=== PATIENT | male | born 1945 | race Caucasian/White ===

== ENCOUNTER 2016-08-25 00:26 | Day surgery (SDC) | payer MEDICARE ==
[~2016-08-25] VITALS: Ht 185.4 cm; Wt 86.3 kg
[2016-08-25] VITALS (14 sets, daily range): BP systolic 111–142; BP diastolic 55–77; PULSE 42–63; RESP 12–19; O2SAT 95–99
[~2016-08-25 00:26] MED LIST: ASPI325T32 PO; NITR0.4T6 SL; PRAV20TA2 PO; TOP100 PO; WARF5TAB7 PO
[2016-08-25 09:23] LABS: BASOPHILS % (AUTO) 0.7 % (0-3); EOSINOPHILS % (AUTO) 3.3 % (0-5); MONOCYTES % (AUTO) 6.4 % (4-12); Mean Corpuscular Hemoglobin 28.9 pg (27.0-35.0); NEUTROPHILS % (AUTO) 61.6 % (40-74); Platelet Count 186 bil/L (150-400)
[2016-08-25] MEDS ORDERED: Nitroglycerin 50,000 mcg/250 mL D5W Premix IV ONE (09:23)
[2016-08-25] MEDS ORDERED: Heparin 1,000 Units/500 mL NS Premix IV ONE (09:23)
[2016-08-25] MEDS ORDERED: Heparin 5,000 Units/500 mL NS Premix IV ONE (09:24)
[2016-08-25] MEDS ORDERED: Heparin 1,000 Unit/mL 10 mL Inj ONE ×2 (09:24→11:43)
[2016-08-25 09:31] LABS: INR 0.95 ratio
[2016-08-25] MEDS ORDERED: 0.9% Sodium Chloride 1,000 ML ONE (09:34)
--- NOTE | 2016-08-25 09:56 | NUR ---
BRETT Admit Admitted to [facility] about 0830. VSS. Denies pain. Tele SB. IVs started and labs sent. Procedure and recovery reviewed and verbalizes understanding. Scanner for meds not working. See EMR for further info and assessment. Awaiting photo lab specialist. Addendum: 08/25/16 at 1015 by ALICE MILLER RN Pt's stated that after his last procedure he was very sleepy with some intermittent, slight confusion for 3 days. After they discussed it they refused the total dose of Lorazepam and requested half dose only. Lorazepam 0.25mg IVP given and reported to OLIVIA Jackson.
[2016-08-25] MEDS ORDERED: fentaNYL-PF 50 mCg/mL 2 mL Inj ONE (10:25)
[2016-08-25] MEDS ORDERED: Atropine 1 mg/10 mL (Code) Syringe ONE (10:57)
--- NOTE | 2016-08-25 13:09 | DI95 ---
[address] [address] INTERVENTIONAL CARDIAC CATHETERIZATION PATIENT: ABDI KASPER : 1945 MR#: [id number] ADMIT: 08/25/2016 JOB ID: [id number] DATE OF PROCEDURE: PROCEDURE: 1. Percutaneous intervention of the right coronary artery. 2. Percutaneous intervention on the left anterior descending artery. INDICATION: 1. Chest pain. 2. Abnormal stress test. HISTORICAL DETAILS: The patient was brought back following an angiogram earlier which was done radially. The RCA is tortuous and necessitated a stiffer sheath and this procedure was then hence done via right femoral approach. PROCEDURAL DETAILS: The coders and the reader is referred to the procedure log for complete details. Briefly, 8-Comoran sheath was inserted in the right femoral artery. An eight-Comoran AL1 guide was used for the right coronary and a Voda 7-Comoran for the left. INTERVENTIONAL REPORT: We took a Run-through wire and placed it in the distal RCA. The Sydney Seed Fundm wire was used as a shanna wire. Following that, we did balloon angioplasty in the proximal mid as well as the distal RCA. The distal RCA was stented with 3.0 x 23 mm Xience drug-coated stent. The proximal and the mid RCA was stented with a 3.0 x 18 mm stent, followed by a 3.0 x 28 mm stent, which was delivered more proximally. Final angiographic results in the RCA were excellent. We then took a Voda guide and intervened on his obtuse marginal branch of the circumflex artery. This circumflex has a branch that arises very proximally. The branch takes off at a 90 degree angle and then makes another 90 degree angle. We were able to get across the proximal of the two bends; however, none of the wires would make the distal bend of as well as a ChoICE PT floppy wire were used. It is about a 1.5 mm to 2 mm vessel. At this point, we decided not to intervene upon it. The second obtuse marginal branch itself has about an 80% lesion in its proximal part. This was stented with a 2.25 x 15 mm Xience drug-coated stent delivered at 16 atmospheres. Final angiographic results were excellent and there was no compromise of this severely diseased side branch. SUMMARY: Successful two vessel intervention. The patient is advised to go back on his warfarin. He will also start Plavix. I have advised to him not to take aspirin along with his Plavix and warfarin. His aspirin may be reinstituted after six months or a year when the Plavix is discontinued.
--- NOTE | 2016-08-25 13:45 | NUR ---
Received Received from quality lab technician about 1225. VSS. Denies pain. at bedside. Right groin without hematoma, track ooze present. Peripheral pulses palp. Taking po well. Bio-occlusive dressing changed to gauze covered by tegaderm at 1315 and then placed a kerlix roll over dressing and 5 lb sandbag over that. Peripheral pulses palp. Continue to monitor.
[2016-08-25] MEDS ORDERED: Lidocaine 1%-Epi 1:100,000 20 mL Inj ONE (14:43)
--- NOTE | 2016-08-25 15:15 | NUR ---
Transfer from [facility]/Ambulation Pt. was transferred from [facility] to room 2030 PCC, RN at bedside hand off. Pt. has no c/o of pain, CP, or SOB. Pt. is to remain bed rest until 1630 per protocol. I instructed Pt. to use call light to let me know when he is ready to get up and ambulate for the first time. Pt. has a low HR of 50, BP 135/79, RA SpO2 99%, RR 18 and is sinus zane per tele. Right groin is non tender, soft to palpation with slight oozing of blood at ~1715. Dressing changed and a 2x2 gauze applied with tegaderm. Pt. ambulated with at about 1730 and forgot to use call light. Pt. is in bed at this time resting comfortably and reminded again to use call light before getting up.
--- NOTE | 2016-08-25 15:23 | NUR ---
BRETT ASSUMED CARE OF PT AT 1500. LIEUTENANT GENERAL HERE TO INJECT RIGHT GROIN WITH LIDO WITH EPI. SHE PLACED ULTRAFOAM AND OPSITE DRSG. RIGHT GROIN REMAINS SOFT, NO HEMATOMA NOTED; RIGHT DP 2+. PT, AND HIS NURSING CARE, WERE TRANSFERRED TO ROOM 2030 AT 1515. RN TO RN BEDSIDE HANDOFF WAS DONE WITH MARY BAKER. REPORT HAD BEEN CALLED EARLIER BY ALICE Montanez RN. TELE WAS PLACED ON PT.
[2016-08-25] MEDS ORDERED: 0.9% Sodium Chloride 250 ML BOLUS IV PRN (19:35)
[2016-08-25] MEDS ORDERED: Atropine 1 mg/10 mL (Code) Syringe IVPUSH PRN (19:35)
[2016-08-25] MEDS ORDERED: Ondansetron 2 mg/mL 2 mL Inj IVPUSH PRN (19:35)
[2016-08-25] MEDS ORDERED: Sodium Chloride LOK Flush 10 mL Syringe IVFLUSH PRN (19:35)
[2016-08-25] MEDS ORDERED: 0.9% Sodium Chloride 400 ML (4 HRS) IV ONE (19:35)
[2016-08-25] MEDS ORDERED: Clopidogrel 300 mg Tablet (LOADING DOSE) PO ONE (19:35)
--- NOTE | 2016-08-25 22:50 | PCM.CONPHA ---
Subjective Date of Service: Aug 25, 2016 Reason for Pharmacy Consult: Anticoagulation Management Objective Vital Signs Date Time Temp Pulse Resp B/P Pulse Ox O2 Delivery O2 Flow Rate FiO2 08/25/16 20:07 36.6 54 19 140/77 99 Room Air 08/25/16 15:25 52 08/25/16 14:30 49 12 119/55 97 Room Air 08/25/16 14:00 44 12 116/63 96 Room Air 08/25/16 13:30 46 12 119/60 97 Room Air 08/25/16 13:30 46 12 119/60 08/25/16 13:15 44 12 111/63 08/25/16 13:15 44 12 111/63 97 Room Air 08/25/16 13:00 43 13 118/67 08/25/16 13:00 43 13 118/67 97 Room Air 08/25/16 12:45 43 13 125/64 08/25/16 12:45 43 13 125/64 98 Room Air 08/25/16 12:35 43 12 122/63 08/25/16 12:35 43 12 122/63 98 Room Air 08/25/16 12:30 44 12 117/66 98 Room Air 08/25/16 12:30 44 12 117/66 08/25/16 12:25 42 12 132/63 08/25/16 12:25 42 12 132/63 98 Room Air 08/25/16 09:58 47 14 08/25/16 09:13 36.6 46 12 142/72 98 Room Air Weight (Kilograms): 86.300 Height (Feet): 6 Height (Inches): 1.00 Test 08/25/16 08:50 White Blood Count 4.3th/mm3 (3.8-10.1) Red Blood Count 5.15mil/mm3 (4.40-5.80) Hemoglobin 14.9g/dL (13.8-17.2) Hematocrit 44.3% (41.0-50.0) Mean Corpuscular Volume 86.0fL (81-100) Mean Corpuscular Hemoglobin 28.9pg (27.0-35.0) Mean Corpuscular Hemoglobin Concent 33.6% (32.0-37.0) Red Cell Distribution Width 13.9% (12.3-15.4) Platelet Count 186bil/L (150-400) Neutrophils (%) (Auto) 61.6% (40-74) Lymphocytes (%) (Auto) 28.0% (14-46) Monocytes (%) (Auto) 6.4% (4-12) Eosinophils (%) (Auto) 3.3% (0-5) Basophils (%) (Auto) 0.7% (0-3) Prothrombin Time 10.2sec (8.1-12.5) Prothromb Time International Ratio 0.95ratio Sodium Level 138mEq/L (134-144) Potassium Level 4.7mEq/L (3.5-5.2) Chloride Level 101mEq/L (97-108) Carbon Dioxide Level 25mmol/L (18-29) Blood Urea Nitrogen 18mg/dL (8-27) Creatinine 1.10mg/dL (0.76-1.27) Estimat Glomerular Filtration Rate 70mL/min (>59) Glucose Level 115mg/dL (60-99) Calcium Level 9.3mg/dL (8.5-10.1) Assessment/Plan Assessment/Plan Warfarin per Rx - (Per Protocol - not requested by provider) Due to no notes/documentation (draft only) - uncertain indication /INR Goal Home dose 5mg - will restart tomorrow (08/26/16) S/P Percutaneous Intervention Pt should be discharged soon Clarence Richard PharmD Aug 25, 2016 22:50
[2016-08-26 03:31] VITALS: BP 129/76; PULSE 60; RESP 17; O2SAT 97
[2016-08-26 05:00] VITALS: PULSE 60
--- NOTE | 2016-08-26 05:49 | NUR ---
Cardiac: Tele SR/ Sbrady overnight. VSS. pt denies any pain. Right groin site asymptomatic, distal pulses palpable. Pt up in room independently, gait steady.
[2016-08-26 07:54] VITALS: BP 129/82; PULSE 59; RESP 20; O2SAT 96
[2016-08-26 08:00] VITALS: PULSE 64
[2016-08-26] MEDS ORDERED: MeTOProlol XL 50 mg ER24 Tablet PO SCH (08:30)
--- NOTE | 2016-08-26 09:58 | NUR ---
Late entry/Injecting 08-25-[address] Gramajo in to see pt. Removed sandbag to assess track ooze. Requested ultrafoam and Lidocaine with epinephrine injection. slab lifting engineer personal notified and addressing groin. Report to Eveline Dotson RN for rest of BRETT stay and report given to floor RN at 1400.
--- NOTE | 2016-08-26 11:29 | PCM.DIMED ---
Discharge Instructions Date of Service Aug 26, 2016 Dates of Hospitalization 08/25/2016 Diet Low fat, Low Sodium Activity Other (No heavy lifting >20 lbs for 5 days and no driving for 2 days.) Call your provider Fever or Chills, Shortness of breath, Bleeding, Chest pain, Weakness (unilateral ) Patient Instructions Follow-up plan 1. Follow up in [address] Gramajo. 2. START clopidogrel 75 mg once a day. DO NOT STOP this unitl Dr. Gramajo says so. TAKE IT EVERY DAY! Cardiac Rehab: 4 weeks Lenny Sierra MD Aug 26, 2016 11:29
--- NOTE | 2016-08-26 11:32 | PCM.DIMED ---
Discharge Instructions Date of Service Aug 26, 2016 Dates of Hospitalization Diet Low fat, Low Sodium Activity Other (No heavy lifting >20 lbs for 5 days and no driving for 2 days.) Call your provider Fever or Chills, Shortness of breath, Bleeding, Chest pain, Weakness (unilateral ) Patient Instructions Follow-up plan 1. Follow up in [address] Gramajo. 2. START clopidogrel 75 mg once a day. DO NOT STOP this unitl Dr. Gramajo says so. TAKE IT EVERY DAY! 3. STOP Aspirin. You will restart this once you have finished taking Clopidogrel Cardiac Rehab: 4 weeks Lenny Sierra MD Aug 26, 2016 11:32
[2016-08-26] MEDS ORDERED: CLOP75TA28 PO (11:33)
--- NOTE | 2016-08-26 11:51 | NUR ---
Social Work: Initial Assessment and Discharge D: Per EMR review, pt is a 71 year old male admitted fro coronary artery disease. Pt is [place] with [employer] supplement; pt has LTC insurance through [employer]. No VA benefits. PCP is Juvencio Sumner MD. IRISH Cheng, , . Advanced directives completed but not on file- IMAGING TECHNOLOGIST requested from pt. who will bring copy after discharge. Readmit score not entered at this time. Pt is on day 1 of stay and has discharge orders in place. IMAGING TECHNOLOGIST met with pt at bedside. Sw role explained. See initial assessment. Pt lives at home with his spouse. He is I at baseline and uses no DME, continues to drive, has never had HH or skilled rehab. Pt and express no concerns with d/c home. Pt has discharge orders at this time. IMAGING TECHNOLOGIST discussed with who also agrees pt should have no home/sw needs. A: Pt who is I at baseline. P: Anticipate pt to discharge home today via POV; No sw needs at this time. GARLAND Fleming Addendum: 08/26/16 at 1155 by NOEL MARTIN Amended: Links added.
--- NOTE | 2016-08-26 12:30 | NUR ---
Discharge Pt. discharged to home with at ~1225 and took all his belongings. Pt. was given educational material on coronary artery disease, coronary intravascular stent placement, and clopidogrel. Pt. was instructed to go to his follow up appointment with Dr. Gramajo [phone] at his [facility] on Monday at 1:45PM. Pt. stated he understood. Pt. IV DC'D on his Right forearm and Left antecubital, both intact and asymptomatic. I redressed his incision in the right groin with a 2x2 gauze and tegaderm. Pt. stated feeling no pain, incision area on palpation was tender and a bruise developed, Pt. stated no pain when palpating the bruise.
== END 2016-08-26 12:39 | disposition home or self-care (01) ==
LOC: SPI 00:26 → UNDOADMIN 15:30 → PCC 15:30 → SPI 08-26 12:39
PROVIDERS: ATTEND Internal Medicine Cardiovascular Disease
DX: I25.10 Atherosclerotic heart disease of native coronary artery without angina pectoris (principal); I48.0 Paroxysmal atrial fibrillation; I47.2 Ventricular tachycardia; Z79.01 Long term (current) use of anticoagulants; E78.5 Hyperlipidemia, unspecified
CPT/HCPCS: 36415; 80048; 85025; 85610; 93005; 99152; 99153; C1725; C1760; C1769; C1874; C1887; C9600; J1200; J1644; J2060; J2250; J3010; J7030; Q9967